=== PATIENT | male | born 1980 | race African-American/Black ===

== ENCOUNTER 2017-12-09 14:23 | Day surgery (SDC) | payer BC, OTHER ==
[2017-12-09 15:00] VITALS: BMI 30.2
--- NOTE | 2017-12-09 15:28 | PROC ---
Endoscopy Procedure Endoscopy procedure completed. Please see scanned procedure report.
[2017-12-09 15:29] VITALS: TEMP 97.5
[2017-12-09 16:09] VITALS: BP 121/70; PULSE 62
--- NOTE | 2017-12-13 12:15 | PATH ---
Surgical Pathology Report Patient Name: GORDON GANNON [facility]. Rec. #: [id number] /Age/Gender: 1980 (Age: 37) / M Account: [id number] Location: [facility]-ENDOSCOPY Taken: 12/09/2017 Received: 12/12/2017 Reported: 12/13/2017 Physicians: Jesse Mena M.D. Specimen(s) Received A: BX 2ND PORTION DUODENUM B: BX ANTRUM AND BODY C: BX GE JUNCTION Clinical History GERD Postoperative diagnosis: Gastritis, GERD Final Diagnosis A. SECOND PORTION DUODENUM, BIOPSY: DUODENAL MUCOSA WITH NO DIAGNOSTIC ABNORMALITIES. B. ANTRUM AND BODY, BIOPSY: GASTRIC MUCOSA WITH REACTIVE GASTROPATHY. IMMUNOSTAIN IS NEGATIVE FOR H. PYLORI ORGANISMS. C. GE JUNCTION, BIOPSY: ESOPHAGEAL (SQUAMOUS) MUCOSA SHOWING CHANGES CONSISTENT WITH REFLUX ESOPHAGITIS. NEGATIVE FOR INTESTINAL METAPLASIA. NO HISTOLOGIC EVIDENCE OF EOSINOPHILIC ESOPHAGITIS. Electronically Signed Marianne Macedo M.D. Gross Description A. Received in formalin, labeled "biopsy second portion of duodenum" are 2 nagel, irregular portions of soft tissue measuring 0.2 and 0.3 cm. in greatest dimension. The specimens are submitted in toto in one cassette. B. Received in formalin, labeled "biopsy antrum and body" are 2 nagel, irregular portions of soft tissue measuring 0.5 and 0.8 cm. in greatest dimension. The specimens are submitted in toto in one cassette. C. Received in formalin, labeled "biopsy GE junction" are 2 nagel, irregular portions of soft tissue measuring 0.4 and 0.6 cm. in greatest dimension. The specimens are submitted in toto in one cassette. 12/12/2017 saudi12/12/2017
== END 2017-12-09 16:09 | disposition home or self-care (01) ==
LOC: JASU-ENDO 14:23
PROVIDERS: ATTEND Internal Medicine Gastroenterology
PROC: 0DB68ZX Excision of Stomach, Via Natural or Artificial Opening Endoscopic, Diagnostic (ICD-10-PCS; 2017-12-09)
PROC: 0DB98ZX Excision of Duodenum, Via Natural or Artificial Opening Endoscopic, Diagnostic (ICD-10-PCS; principal; 2017-12-09 13:00)
DX: K29.00 Acute gastritis without bleeding (principal)
CPT/HCPCS: 88305-TC; 88342-TC